=== PATIENT | male | born 2000 | race Hispanic/Latino ===

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

== ENCOUNTER 2020-02-11 20:40 | Emergency (ER) | payer MEDICAID ==
[2020-02-11] MEDS ORDERED: KETOROLAC TROMETHAMINE 60 MG/2 ML VIAL ONE (21:33)
== END 2020-02-11 22:09 | disposition home or self-care (01) ==
LOC: EDH 20:40
DX: M25.531 Pain in right wrist (principal); W18.39XA Other fall on same level, initial encounter; Y93.61 Activity, american tackle football; Y92.89 Other specified places as the place of occurrence of the external cause; Y99.8 Other external cause status
CPT/HCPCS: 29125; 73130; 96372; 99283; J1885